=== PATIENT | female | born 1960 | race Caucasian/White ===

== ENCOUNTER → 2017-09-05 | Outpatient (CLI) | payer BC ==
[2016-04-08 11:27] VITALS: BP 145/80
[~2017-09-05] MED LIST: ASPI81TA50 PO; CALC-30 PO; COLE3.753 PO; CYCL-331 PO; FEXO180T81 PO; FLUT9.9S NS; IBUP800T19 PO; INSU100I13 SQ; INSU100I17 SQ; LEVO50TA PO; LISI2.5T PO; METF10002 PO; NAPR500T4 PO; RANI300C PO
[2017-09-05 11:13] LABS: CALCIUM 9.9 mg/dL (8.5-10.1); GFR 56.7; POTASSIUM 4.8 mmol/L (3.5-5.1)
== END | disposition home or self-care (01) ==
LOC: LAB 10:24
PROVIDERS: ATTEND Nurse Practitioner
DX: E87.6 Hypokalemia (principal); E78.5 Hyperlipidemia, unspecified; Z87.891 Personal history of nicotine dependence
CPT/HCPCS: 36415; 80048; 80061

== ENCOUNTER → 2017-11-27 | Outpatient (CLI) | payer OTHER ==
[2016-04-08 11:27] VITALS: BP 145/80
[~2017-11-27] MED LIST changes: +NAPR-514 PO; -NAPR500T4 PO
[2017-11-27 17:21] LABS: ALBUMIN 3.4 g/dL (3.4-5.0); DIRECT BILIRUBIN 0.3 mg/dL (0.0-0.2); TOTAL BILIRUBIN 1.4 mg/dL (0.2-1.0); TOTAL PROTEIN 7.5 g/dL (6.4-8.2)
== END | disposition home or self-care (01) ==
LOC: LAB 14:56
PROVIDERS: ATTEND Nurse Practitioner
DX: E78.5 Hyperlipidemia, unspecified (principal); E11.9 Type 2 diabetes mellitus without complications; I10 Essential (primary) hypertension; E03.9 Hypothyroidism, unspecified; K21.9 Gastro-esophageal reflux disease without esophagitis; Z87.891 Personal history of nicotine dependence
CPT/HCPCS: 36415; 80076

== ENCOUNTER 2021-06-20 21:42 | Emergency (ER) | payer OTHER ==
[~2021-06-20] VITALS: Ht 149.9 cm; Wt 69.6 kg
[~2021-06-20 21:42] MED LIST changes: -CYCL-331 PO; +CYCL10TA19 PO; -LISI2.5T PO; +LISI2.5T12 PO; -METF10002 PO; +METF10007 PO
--- NOTE | 2021-06-20 21:51 | PHYS DOC ---
Past History Past Medical History: Diabetes, High Cholesterol, Hypertension Adult General Chief Complaint Chief Complaint: HYPERGLYCEMIA HPI HPI Patient is a 60-year-old female presenting via EMS for hyperglycemia. Reports this is been going on for past few days and exacerbated by the fact that she has only been taking her nighttime Tresiba long-acting insulin, she has not been using her sliding scale Humalog for past 72 hours. She states she has not been doing this because she is just felt tired and lazy. Denies any other pain, fever, change in medications, sick contacts, recent travel or other major change in health. Patient's fingerstick glucose at home was in the upper four hundreds which concerned family members whom she lives with prompting them to call EMS. On arrival, patient's fingerstick glucose was 472, remaining vitals were unremarkable. 500 mL IV normal saline started and patient was transported to our facility. On arrival, patient's only complaint is fatigue. No fever, chest pain, shortness of breath, tearing or ripping sensation in abdomen or chest, no motor or sensory or neuro function changes. 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 Admits her last hemoglobin A1c was approximately 8.2% Review of Systems Review of Systems Fourteen body systems of review of systems have been reviewed. See HPI for pertinent positives and negative responses, other robles all other systems are negative, non-pertinent or non-contributory Allergies Allergies Allergies Coded Allergies Type Severity Reaction Last Updated Verified No Known Drug Allergies 04/07/16 No Physical Exam Physical Exam Constitutional: Well developed, well nourished, no acute distress, non-toxic appearance. HENT: Normocephalic, atraumatic, bilateral external ears normal, oropharynx moist, poor dentition, no oral exudates, nose normal. Eyes: PERRLA, EOMI, conjunctiva normal, no discharge. Neck: Normal range of motion, no tenderness, supple, no stridor. Cardiovascular: Heart rate regular, sinus rhythm, no murmurs rubs or gallops Lungs & Thorax: Bilateral breath sounds clear to auscultation Abdomen: Bowel sounds normal, soft, no tenderness, no masses, no pulsatile masses. Nonsurgical abdomen, no peritoneal signs Skin: Warm, dry, no erythema, no rash. Back: No tenderness, no CVA tenderness. Extremities: No tenderness, no cyanosis, no clubbing, ROM intact, no edema. Neurologic: Alert and oriented X 3, grossly normal motor & sensory function, no focal deficits noted. Psychologic: Affect normal, judgement normal, mood normal. Current Patient Data Vital Signs Vital Signs Date Time Temp Pulse Resp B/P (MAP) Pulse Ox O2 Delivery O2 Flow Rate FiO2 06/20/21 21:46 98.1 84 18 163/78 (106) 100 Room Air Vital Signs Date Time Temp Pulse Resp B/P (MAP) Pulse Ox O2 Delivery O2 Flow Rate FiO2 06/20/21 22:27 88 24 155/94 (114) 98 Room Air 06/20/21 21:46 98.1 Lab Results Laboratory Tests Test 06/20/21 21:55 06/20/21 22:00 06/20/21 22:07 06/20/21 22:57 White Blood Count 9.9 x10^3/uL Red Blood Count 4.47 x10^6/uL Hemoglobin 12.9 g/dL Hematocrit 37.8 % Mean Corpuscular Volume 85 fL Mean Corpuscular Hemoglobin 29 pg Mean Corpuscular Hemoglobin Concent 34 g/dL Red Cell Distribution Width 12.7 % Platelet Count 241 x10^3/uL Neutrophils (%) (Auto) 65 % Lymphocytes (%) (Auto) 25 % Monocytes (%) (Auto) 7 % Eosinophils (%) (Auto) 3 % Basophils (%) (Auto) 1 % Neutrophils # (Auto) 6.4 x10^3uL Lymphocytes # (Auto) 2.5 x10^3/uL Monocytes # (Auto) 0.7 x10^3/uL Eosinophils # (Auto) 0.3 x10^3/uL Basophils # (Auto) 0.1 x10^3/uL Sodium Level 129 mmol/L Potassium Level 4.5 mmol/L Chloride Level 94 mmol/L Carbon Dioxide Level 28 mmol/L Anion Gap 7 Blood Urea Nitrogen 13 mg/dL Creatinine 1.1 mg/dL Estimated GFR (Cockcroft-Gault) 50.3 Glucose Level 491 mg/dL Calcium Level 9.5 mg/dL Troponin I High Sensitivity 7 ng/L SARS-CoV-2 Antigen (Rapid) Negative Glucose (Fingerstick) 455 mg/dL 196 mg/dL Current Medications Medications (Trade) Dose Ordered Sig/Greg Route PRN Reason Start Time Stop Time Status Last Admin Dose Admin Insulin Human Regular (HumuLIN R VIAL) 10 unit 1X ONCE IV 06/20/21 22:00 06/20/21 22:39 DC 06/20/21 22:09 Insulin Human Lispro (HumaLOG) 300 units STK-MED ONCE SQ 06/20/21 22:00 06/20/21 22:01 DC Gabapentin (Neurontin) 100 mg 1X ONCE PO 06/20/21 22:30 06/20/21 22:39 DC 06/20/21 22:30 EKG EKG EKG ordered and interpreted by myself at 2203 hrs. as sinus rhythm at 79 bpm, unremarkable intervals, no axis deviation, no obvious ischemic findings, no STEMI Radiology/Procedures Radiology/Procedures [] Heart Score C/O Chest Pain: No HEART Score for Chest Pain: HEART Score for Chest Pain Response (Comments) Value History Slighlty/Non-Suspicious 0 ECG Normal 0 Age >45 - < 65 1 Risk Factors >3 Risk Factors or Hx CAD 2 Troponin < Normal Limit 0 Total 3 Risk Factors: Risk Factors: DM, Current or recent (<one month) smoker, HTN, HLP, family history of CAD, obesity. Risk Scores: Risk Factors: DM, Current or recent (<one month) smoker, HTN, HLP, family history of CAD, obesity. Course & Med Decision Making Course & Med Decision Making ABCs unremarkable HPI physical exam and comprehensive ER work-up nonconcerning for any emergent or surgical issues I disclosed entirety of all ER findings. Patient hyperglycemic, likely due to fact that she has not been taking her sliding scale insulin. 10 units IV insulin administered with improvement in fingerstick blood glucose Patient also appears clinically dehydrated. 500 mL IV normal saline administered prior to arrival. I reviewed low sodium and chloride levels, an additional 1 L IV normal saline administered while in ER. Close PCP follow-up for BMP recheck recommended I disclose little indication in absence of any other signs or symptoms to pursue further diagnostic work-up or need for hospitalization at this time. Strict return precautions were discussed with good understanding by patient, and son at bedside. All questions and concerns addressed prior to ER departure with explicit recommendations to adhere to sliding scale insulin use at home to prevent further episodes of hyperglycemia Dragon Disclaimer Dragon Disclaimer This electronic medical record was generated, in whole or in part, using a voice recognition dictation system. Departure Departure: Impression: Primary Impression: Type 2 diabetes mellitus with hyperglycemia Additional Impression: Electrolyte imbalance Disposition: HOME / SELF CARE / HOMELESS Condition: IMPROVED Referrals: AL LOVELACE MD (PCP) Additional Instructions: You were seen for hyperglycemia. You need to start taking your sliding scale insulin/diabetes medications as prescribed and follow up with your primary care doctor as soon as possible. It is important for good glycemic control to reduce the risks of acute and chronic medical problems. In addition, it was disclosed that your sodium and chloride levels were low. You were administered normal saline which is a solution which contains both sodium and chloride. Continue good p.o. fluid intake and electrolyte intake with recommendations for close outpatient follow-up for repeat metabolic panel lab draw for repeat analysis within upcoming 7 days. Return to the ED if you develop any abdominal pain, vomiting, cough, chest pain, fever, or any other new or concerning symptoms. Problem Qualifiers ANTOINE KUMAR DO Jun 20, 2021 21:51
[2021-06-20] MEDS ORDERED: INSULIN REGULAR 100 UNIT/ML 3ML VIAL. IV ONE (22:00)
[2021-06-20] MEDS ORDERED: INSULIN LISPRO 300 UNITS/3 ML VIAL. SQ ONE (22:00)
[2021-06-20 22:19] LABS: BASO # 0.1 x10^3/uL (0.0-0.2); BASO % 1 % (0-3); EOS # 0.3 x10^3/uL (0.0-0.7); EOS % 3 % (0-3); HEMATOCRIT 37.8 % (36.0-47.0); HEMOGLOBIN 12.9 g/dL (12.0-15.5); LYMPH # 2.5 x10^3/uL (1.0-4.8); LYMPH % 25 % (24-48); MEAN CORPUSCULAR HEMOGLOBIN 29 pg (25-35); MEAN CORPUSCULAR HGB CONC 34 g/dL (31-37); MEAN CORPUSCULAR VOLUME 85 fL (79-100); MONO # 0.7 x10^3/uL (0.0-1.1); MONO % 7 % (0-9); NEUT # 6.4 x10^3uL (1.8-7.7); NEUT % 65 % (31-73); PLATELET COUNT 241 x10^3/uL (140-400); RED BLOOD COUNT 4.47 x10^6/uL (3.50-5.40); RED CELL DISTRIBUTION WIDTH 12.7 % (11.5-14.5); WHITE BLOOD COUNT 9.9 x10^3/uL (4.0-11.0)
[2021-06-20 22:26] LABS: CALCIUM 9.5 mg/dL (8.5-10.1); CREATININE 1.1 mg/dL (0.6-1.0); GFR 50.3; POTASSIUM 4.5 mmol/L (3.5-5.1)
[2021-06-20] MEDS ORDERED: GABAPENTIN 100 MG CAPSULE. PO ONE (22:30)
--- NOTE | 2021-06-20 23:05 | EKG ---
[address] [address] Test Date: 2021-06-20 Test Time: 21:59:56 Pat Name: GOPI DONALD Department: Room: Gender: F Pmo Manager: : [id number] Requested By: ANTOINE KUMAR Order Number: [id number] Reading MD: Edward Tineo MD Measurements Intervals [place] Rate: 79 P: 43 MO: 196 QRS: 12 QRSD: 72 T: 35 QT: 368 QTc: 428 Interpretive Statements SINUS RHYTHM Electronically Signed On 06-21-2021 13:24:00 [facility] by Edward Tineo MD
[2021-06-20] MEDS ORDERED: IV NORMAL SALINE 1,000ML 1,000 ML IV ONE (23:15)
[2021-06-21 00:30] VITALS: BP 145/78
== END 2021-06-21 00:38 | disposition home or self-care (01) ==
LOC: ER 21:42
DX: E11.65 Type 2 diabetes mellitus with hyperglycemia (principal); E87.8 Other disorders of electrolyte and fluid balance, not elsewhere classified; E78.00 Pure hypercholesterolemia, unspecified; I10 Essential (primary) hypertension; Z20.822 Contact with and (suspected) exposure to COVID-19
CPT/HCPCS: 80048; 82947; 84484; 85025; 87426; 93005; 96361; 96374; 99284; C9803; J1815; J7030; U0003; 99283